=== PATIENT | male | born 1945 | race Hispanic/Latino ===

== ENCOUNTER 2019-04-28 07:05 | Outpatient (CLI) | payer BC, MEDICARE ==
--- NOTE | 2019-04-28 08:08 | ULT ---
ULTRASOUND RETROPERITONEUM COMPLETE: (RENAL) DATE: 04/28/2019 HISTORY: Stage III chronic kidney disease in 73-year-old male FINDINGS: The right kidney measures 9 x 5 x 4.7 cm. The left kidney measures 10.5 x 6 x 6.5 cm. Both kidneys have normal parenchymal echogenicity. There is no hydronephrosis. 1.5 x 1 cm parenchymal, nonexophytic cyst at left renal mid-lower pole.. Cursory images of the urinary bladder demonstrate no gross abnormality. IMPRESSION: 1) small left renal cyst. 2) otherwise negative
== END 2019-04-28 07:06 | disposition home or self-care (01) ==
LOC: BICULT 07:05
PROVIDERS: ATTEND Internal Medicine Nephrology
DX: N18.3 Chronic kidney disease, stage 3 (moderate) (principal); N28.1 Cyst of kidney, acquired
CPT/HCPCS: 76770